=== PATIENT | female | born 1950 | race Caucasian/White ===

== ENCOUNTER → 2022-05-07 | Day surgery (SDC) | payer MEDICARE, OTHER ==
[~2022-05-07] MED LIST: Ketamine 200 MG/20 ML MDV ONE; Lactated Ringers 1,000 ML IV SCH; Ondansetron 4 MG/2 ML SDV ONE; Propofol 200 MG/20 ML SDV ONE; fentaNYL 50 MCG/ML SDV ONE
[2022-05-07 12:42] VITALS: BP 122/41; PULSE 56
== END ==
LOC: CC.SDS 09:34
PROVIDERS: ATTEND Family Medicine
DX: K62.1 Rectal polyp (principal); K29.70 Gastritis, unspecified, without bleeding; K57.30 Diverticulosis of large intestine without perforation or abscess without bleeding; F41.1 Generalized anxiety disorder; I25.10 Atherosclerotic heart disease of native coronary artery without angina pectoris; I10 Essential (primary) hypertension; E88.09 Other disorders of plasma-protein metabolism, not elsewhere classified; G47.00 Insomnia, unspecified; F17.210 Nicotine dependence, cigarettes, uncomplicated; Z88.0 Allergy status to penicillin; Z88.6 Allergy status to analgesic agent; Z88.5 Allergy status to narcotic agent; Z88.8 Allergy status to other drugs, medicaments and biological substances; Z88.1 Allergy status to other antibiotic agents; Z95.1 Presence of aortocoronary bypass graft; Z79.899 Other long term (current) drug therapy; Z79.82 Long term (current) use of aspirin; Z98.890 Other specified postprocedural states
CPT/HCPCS: 87081; 88305; J2405; J2704; J3010; J7120